=== PATIENT | male | born 1965 | race Caucasian/White ===

== ENCOUNTER → 2017-04-17 | Outpatient (REF) | payer OTHER | LOC: M LAB REF 12:08 | PROVIDERS: ATTEND Physician Assistant | DX: R30.0 Dysuria (principal) ==

== ENCOUNTER → 2017-04-17 | Outpatient (CLI) | payer OTHER ==
[2017-04-17 12:52] LABS: BASO % 0.6 % (0.0-1.0); EOS # 0.1 K/mm3 (0.0-0.50); LARGE UNSTAINED CELL # 0.1 K/mm3 (0.0-0.4); LARGE UNSTAINED CELL % 1.2 % (0.0-4.0); LYMPH # 1.8 K/mm3 (1.5-4.5); LYMPH % 24.4 % (24.0-44.0); MEAN CORPUSCULAR HEMOGLOBIN 32.9 pg (27.0-33.0); MEAN CORPUSCULAR HGB CONC 33.9 g/dl (32.0-36.5); MEAN CORPUSCULAR VOLUME 97.2 fl (80.0-96.0); MONO # 0.4 K/mm3 (0.0-0.8); MONO % 6.2 % (0.0-5.0); NEUTROPHILS # 4.7 K/mm3 (1.8-7.7); NEUTROPHILS % 66.5 % (36.0-66.0); PLATELET COUNT, AUTOMATED 289 k/mm3 (150-450); RED CELL DISTRIBUTION WIDTH 13.1 % (11.5-14.5); WHITE BLOOD COUNT 7.1 K/mm3 (4.0-10.0)
[2017-04-17 13:02] LABS: ALBUMIN 3.8 GM/DL (3.2-5.2); ALBUMIN/GLOBULIN RATIO 1.27 (1.00-1.93); ALKALINE PHOSPHATASE 91 U/L (45-117); ALT/SGPT 67 U/L (12-78); ANION GAP 9 MEQ/L (8-16); AST/SGOT 29 U/L (15-37); BILIRUBIN,TOTAL 0.5 MG/DL (0.2-1.0); BLOOD UREA NITROGEN 27 MG/DL (7-18); CALCIUM LEVEL 9.1 MG/DL (8.5-10.1); CARBON DIOXIDE LEVEL 29 MEQ/L (21-32); CHLORIDE LEVEL 108 MEQ/L (98-107); CHOLESTEROL LEVEL 182 MG/DL (<200); CREATININE FOR GFR 1.03 MG/DL (0.70-1.30); GLOMERULAR FILTRATION RATE > 60.0 (>60); GLUCOSE, FASTING 112 MG/DL (70-105); POTASSIUM SERUM 4.1 MEQ/L (3.5-5.1); SODIUM LEVEL 146 MEQ/L (136-145); TOTAL PROTEIN 6.8 GM/DL (6.4-8.2); TRIGLYCERIDES LEVEL 104 MG/DL (<150)
[2017-04-19 00:06] LABS: PSA TOTAL 0.6 ng/mL (0.0-4.0)
== END ==
LOC: M WUC 09:36
PROVIDERS: ATTEND Nurse Practitioner Family
DX: Z12.5 Encounter for screening for malignant neoplasm of prostate (principal); E78.1 Pure hyperglyceridemia; I10 Essential (primary) hypertension

== ENCOUNTER → 2018-05-18 | Outpatient (CLI) | payer OTHER ==
[2018-05-18 12:46] LABS: BASO # 0.1 10^3/uL (0.0-0.2); BASO % 0.6 % (0.0-1.0); EOS # 0.1 10^3/uL (0.0-0.50); EOS % 1.1 % (0.0-3.0); HEMATOCRIT 44.1 % (42.0-52.0); IMMATURE GRANULOCYTE % 0.3 % (0-3.0); LYMPH # 2.3 10^3/uL (1.5-4.5); LYMPH % 26.2 % (24.0-44.0); MEAN CORPUSCULAR HEMOGLOBIN 32.7 pg (27.0-33.0); MEAN CORPUSCULAR VOLUME 96.1 fl (80.0-96.0); MONO # 0.8 10^3/uL (0.0-0.8); MONO % 8.8 % (0.0-5.0); NEUTROPHILS # 5.5 10^3/uL (1.8-7.7); PLATELET COUNT, AUTOMATED 323 10^3/uL (150-450); RED BLOOD COUNT 4.59 10^6/uL (4.30-6.10); RED CELL DISTRIBUTION WIDTH 12.3 % (11.5-14.5); WHITE BLOOD COUNT 8.7 10^3/uL (4.0-10.0)
[2018-05-18 13:05] LABS: ALBUMIN 3.4 GM/DL (3.2-5.2); ALBUMIN/GLOBULIN RATIO 0.97 (1.00-1.93); ALKALINE PHOSPHATASE 105 U/L (45-117); ALT/SGPT 62 U/L (12-78); ANION GAP 8 MEQ/L (8-16); AST/SGOT 23 U/L (7-37); BILIRUBIN,TOTAL 0.4 MG/DL (0.2-1.0); BLOOD UREA NITROGEN 23 MG/DL (7-18); CALCIUM LEVEL 8.4 MG/DL (8.5-10.1); CARBON DIOXIDE LEVEL 30 MEQ/L (21-32); CHLORIDE LEVEL 106 MEQ/L (98-107); CHOLESTEROL LEVEL 174 MG/DL (<200); CHOLESTEROL RISK RATIO 5.612 (<5); CREATININE FOR GFR 1.07 MG/DL (0.70-1.30); GLOMERULAR FILTRATION RATE > 60.0 (>56); GLUCOSE, FASTING 109 MG/DL (70-100); HDL CHOLESTEROL 31 MG/DL (>40); LDL CHOLESTEROL 109 MG/DL (<100); NON-HDL-C 143 MG/DL; POTASSIUM SERUM 3.7 MEQ/L (3.5-5.1); SODIUM LEVEL 144 MEQ/L (136-145); TOTAL PROTEIN 6.9 GM/DL (6.4-8.2); TRIGLYCERIDES LEVEL 172 MG/DL (<150)
[2018-05-18 13:28] LABS: ESTIMATED AVERAGE GLUCOSE 117 MG/DL (60-110); HEMOGLOBIN A1c 5.7 %
[2018-05-20 00:08] LABS: PSA TOTAL 0.9 ng/mL (0.0-4.0)
== END ==
LOC: M WUC 08:27
DX: K21.9 Gastro-esophageal reflux disease without esophagitis (principal); R73.01 Impaired fasting glucose; E78.1 Pure hyperglyceridemia; I10 Essential (primary) hypertension; Z12.5 Encounter for screening for malignant neoplasm of prostate
CPT/HCPCS: 80053

== ENCOUNTER → 2018-06-20 | Outpatient (CLI) | payer OTHER | LOC: M WUC 12:08 | DX: M77.32 Calcaneal spur, left foot (principal); M25.572 Pain in left ankle and joints of left foot | CPT/HCPCS: 73630 ==

== ENCOUNTER → 2018-11-23 | Outpatient (CLI) | payer BC ==
[2018-11-23 13:43] LABS: BASO # 0.1 10^3/uL (0.0-0.2); BASO % 0.7 % (0.0-1.0); EOS # 0.1 10^3/uL (0.0-0.50); EOS % 0.9 % (0.0-3.0); HEMATOCRIT 46.3 % (42.0-52.0); HEMOGLOBIN 15.7 g/dl (13.5-17.5); LYMPH # 2.5 10^3/uL (1.5-4.5); LYMPH % 29.1 % (24.0-44.0); MEAN CORPUSCULAR HEMOGLOBIN 32.7 pg (27.0-33.0); MEAN CORPUSCULAR HGB CONC 33.9 g/dl (32.0-36.5); MEAN CORPUSCULAR VOLUME 96.5 fl (80.0-96.0); MONO # 0.9 10^3/uL (0.0-0.8); MONO % 10.2 % (0.0-5.0); NEUTROPHILS % 58.6 % (36.0-66.0); PLATELET COUNT, AUTOMATED 333 10^3/uL (150-450); WHITE BLOOD COUNT 8.6 10^3/uL (4.0-10.0)
[2018-11-23 13:46] LABS: ALBUMIN 3.8 GM/DL (3.2-5.2); ALT/SGPT 51 U/L (12-78); BILIRUBIN,TOTAL 0.4 MG/DL (0.2-1.0); BLOOD UREA NITROGEN 25 MG/DL (7-18); CALCIUM LEVEL 9.4 MG/DL (8.5-10.1); CARBON DIOXIDE LEVEL 31 MEQ/L (21-32); CHLORIDE LEVEL 103 MEQ/L (98-107); CHOLESTEROL LEVEL 197 MG/DL (<200); CHOLESTEROL RISK RATIO 5.969 (<5); CREATININE FOR GFR 1.17 MG/DL (0.70-1.30); GLOMERULAR FILTRATION RATE > 60.0 (>56); GLUCOSE, FASTING 114 MG/DL (70-100); HDL CHOLESTEROL 33 MG/DL (>40); LDL CHOLESTEROL 113 MG/DL (<100); NON-HDL-C 164 MG/DL; POTASSIUM SERUM 3.9 MEQ/L (3.5-5.1); SODIUM LEVEL 140 MEQ/L (136-145); TOTAL PROTEIN 6.9 GM/DL (6.4-8.2); TRIGLYCERIDES LEVEL 253 MG/DL (<150)
== END ==
LOC: M WUC 08:30
PROVIDERS: ATTEND Nurse Practitioner Family
DX: I10 Essential (primary) hypertension (principal); E78.1 Pure hyperglyceridemia

== ENCOUNTER → 2019-04-09 | Outpatient (CLI) | payer BC ==
[2019-04-09 13:43] LABS: BASO # 0.1 10^3/uL (0.0-0.2); BASO % 1.3 % (0.0-1.0); EOS # 0.1 10^3/uL (0.0-0.5); EOS % 1.6 % (0.0-3.0); HEMATOCRIT 48.2 % (42.0-52.0); HEMOGLOBIN 16.4 g/dl (13.5-17.5); LYMPH # 2.3 10^3/uL (1.5-5.0); LYMPH % 31.5 % (24.0-44.0); MEAN CORPUSCULAR HEMOGLOBIN 33.9 pg (27.0-33.0); MEAN CORPUSCULAR VOLUME 99.6 fl (80.0-96.0); MONO # 0.9 10^3/uL (0.0-0.8); MONO % 12.3 % (0.0-5.0); NEUTROPHILS # 3.8 10^3/uL (1.5-8.5); NEUTROPHILS % 51.8 % (36.0-66.0); PLATELET COUNT, AUTOMATED 342 10^3/uL (150-450); RED BLOOD COUNT 4.84 10^6/uL (4.30-6.10); WHITE BLOOD COUNT 7.4 10^3/uL (4.0-10.0)
[2019-04-09 14:46] LABS: ALBUMIN 3.5 GM/DL (3.2-5.2); ALT/SGPT 58 U/L (12-78); AMYLASE 27 U/L (25-115); BILIRUBIN,TOTAL 0.5 MG/DL (0.2-1.0); BLOOD UREA NITROGEN 26 MG/DL (7-18); CALCIUM LEVEL 9.6 MG/DL (8.5-10.1); CARBON DIOXIDE LEVEL 32 MEQ/L (21-32); CHLORIDE LEVEL 105 MEQ/L (98-107); CHOLESTEROL LEVEL 203 MG/DL (<200); CHOLESTEROL RISK RATIO 5.342 (<5); CREATININE FOR GFR 1.16 MG/DL (0.70-1.30); GLOMERULAR FILTRATION RATE > 60.0 (>56); GLUCOSE, FASTING 121 MG/DL (70-100); HDL CHOLESTEROL 38 MG/DL (>40); LDL CHOLESTEROL 132 MG/DL (<100); LIPASE 111 U/L (73-393); NON-HDL-C 165 MG/DL; POTASSIUM SERUM 3.7 MEQ/L (3.5-5.1); SODIUM LEVEL 141 MEQ/L (136-145); TOTAL PROTEIN 6.9 GM/DL (6.4-8.2); TRIGLYCERIDES LEVEL 163 MG/DL (<150)
== END ==
LOC: M WUC 08:30
PROVIDERS: ATTEND Physician Assistant
DX: R19.7 Diarrhea, unspecified (principal); E78.2 Mixed hyperlipidemia

== ENCOUNTER → 2019-08-28 | Outpatient (CLI) | payer BC ==
[2019-08-28 17:25] LABS: BASO % 0.2 % (0.0-1.0); EOS # 0.1 10^3/uL (0.0-0.5); EOS % 0.6 % (0.0-3.0); HEMATOCRIT 46.1 % (42.0-52.0); LYMPH # 0.9 10^3/uL (1.5-5.0); MEAN CORPUSCULAR HEMOGLOBIN 32.9 pg (27.0-33.0); MEAN CORPUSCULAR HGB CONC 34.7 g/dl (32.0-36.5); MEAN CORPUSCULAR VOLUME 94.7 fl (80.0-96.0); MONO # 0.5 10^3/uL (0.0-0.8); MONO % 6.4 % (0.0-5.0); NEUTROPHILS # 6.9 10^3/uL (1.5-8.5); PLATELET COUNT, AUTOMATED 329 10^3/uL (150-450); RED BLOOD COUNT 4.87 10^6/uL (4.30-6.10); WHITE BLOOD COUNT 8.5 10^3/uL (4.0-10.0)
[2019-08-28 17:33] LABS: ALBUMIN 3.6 GM/DL (3.2-5.2); ALT/SGPT 74 U/L (12-78); AMYLASE 28 U/L (25-115); BILIRUBIN,TOTAL 0.5 MG/DL (0.2-1.0); BLOOD UREA NITROGEN 16 MG/DL (7-18); CALCIUM LEVEL 8.4 MG/DL (8.5-10.1); CARBON DIOXIDE LEVEL 30 MEQ/L (21-32); CHLORIDE LEVEL 105 MEQ/L (98-107); CREATININE FOR GFR 1.13 MG/DL (0.70-1.30); GLOMERULAR FILTRATION RATE > 60.0 (>56); GLUCOSE, FASTING 120 MG/DL (70-100); POTASSIUM SERUM 3.9 MEQ/L (3.5-5.1); SODIUM LEVEL 139 MEQ/L (136-145); TOTAL PROTEIN 6.9 GM/DL (6.4-8.2)
== END ==
LOC: M WUC 15:26
PROVIDERS: ATTEND Physician Assistant
DX: J01.10 Acute frontal sinusitis, unspecified (principal)

== ENCOUNTER → 2020-05-19 | Outpatient (CLI) | payer BC ==
[2020-05-19 13:42] LABS: HEMOGLOBIN A1c 5.7 %
[2020-05-19 13:49] LABS: ALBUMIN 3.5 GM/DL (3.2-5.2); ALT/SGPT 82 U/L (12-78); BILIRUBIN,TOTAL 0.4 MG/DL (0.2-1.0); BLOOD UREA NITROGEN 21 MG/DL (7-18); CALCIUM LEVEL 8.9 MG/DL (8.5-10.1); CARBON DIOXIDE LEVEL 28 MEQ/L (21-32); CHLORIDE LEVEL 108 MEQ/L (98-107); CHOLESTEROL LEVEL 195 MG/DL (<200); CREATININE FOR GFR 1.09 MG/DL (0.70-1.30); GLOMERULAR FILTRATION RATE > 60.0 (>56); GLUCOSE, FASTING 98 MG/DL (70-100); HDL CHOLESTEROL 37 MG/DL (>40); LDL CHOLESTEROL 134 MG/DL (<100); NON-HDL-C 158 MG/DL; POTASSIUM SERUM 4.3 MEQ/L (3.5-5.1); SODIUM LEVEL 141 MEQ/L (136-145); TOTAL PROTEIN 6.9 GM/DL (6.4-8.2); TRIGLYCERIDES LEVEL 120 MG/DL (<150)
== END ==
LOC: M WUC 09:49
PROVIDERS: ATTEND Physician Assistant Medical
DX: R73.01 Impaired fasting glucose (principal)

== ENCOUNTER → 2021-01-08 | Outpatient (CLI) | payer BC ==
--- NOTE | 2021-01-08 14:26 | REP ---
INDICATION: PAIN COMPARISON: None. TECHNIQUE: AP, lateral, single oblique views of the left elbow elbow. FINDINGS: No obvious acute or subacute fracture is identified. Mild cortical irregularity over the lateral condylar region of the humerus suggest mild age-related degenerative change. Lateral view without evidence for joint effusion or elevation to the anterior fat pad. IMPRESSION: Age-related changes. No evidence for acute/subacute injury. <Electronically signed by Nabil Park > 01/08/21 [id number]
== END ==
LOC: M WUC 13:06
PROVIDERS: ATTEND Nurse Practitioner Family
DX: M25.522 Pain in left elbow (principal)

== ENCOUNTER 2021-05-21 06:08 | Emergency (ER) | payer BC ==
[~2021-05-21] VITALS: Ht 170.2 cm; Wt 112.0 kg
[2021-05-21] MEDS ORDERED: HYDR-3490 (06:19)
[2021-05-21] MEDS ORDERED: LOPI600T (06:19)
[2021-05-21] MEDS ORDERED: OMEP-221 (06:19)
[2021-05-21] MEDS ORDERED: LOSA50TA88 (06:19)
[2021-05-21 08:03] LABS: HEMATOCRIT 44.1 % (42.0-52.0); MEAN CORPUSCULAR HEMOGLOBIN 32.8 pg (27.0-33.0); MEAN CORPUSCULAR VOLUME 96.3 fl (80.0-96.0); PLATELET COUNT, AUTOMATED 291 10^3/uL (150-450); RED BLOOD COUNT 4.58 10^6/uL (4.30-6.10); WHITE BLOOD COUNT 7.1 10^3/uL (4.0-10.0)
[2021-05-21] MEDS ORDERED: LOSARTAN 50MG TABLET PO ONE (08:05)
--- NOTE | 2021-05-21 08:36 | REPVR ---
PROCEDURE INFORMATION: Exam: CT Head Without Contrast Exam date and time: 05/21/2021 8:21 AM Age: 55 years old Clinical indication: Headache. TECHNIQUE: Imaging protocol: Computed tomography of the head without contrast. Radiation optimization: All CT scans at this facility use at least one of these dose optimization techniques: automated exposure control; mA and/or kV adjustment per patient size (includes targeted exams where dose is matched to clinical indication); or iterative reconstruction. COMPARISON: No relevant prior studies available. FINDINGS: Brain: Normal. No hemorrhage. Unremarkable white matter. No mass effect. Cerebral ventricles: No ventriculomegaly. Paranasal sinuses: Visualized sinuses are unremarkable. No fluid levels. Mastoid air cells: Visualized mastoid air cells are well aerated. Bones/joints: Unremarkable. No acute fracture. Soft tissues: Unremarkable. IMPRESSION: No acute intracranial abnormality. Electronically signed by: Gunnar Prado On 05/21/2021 08:35:23 AM
[2021-05-21 08:37] LABS: BASOPHILS 1 % (0-1); EOSINOPHILS 2 % (0-3); LYMPHOCYTES 31 % (16-44); MONOCYTES 8 % (0-5); NEUTROPHILS 58 % (28-66); PLATELET ESTIMATE NORMAL (NORMAL)
[2021-05-21 08:41] VITALS: BP 165/93
--- OUTSIDE RECORDS SUMMARY | 2021-05-21 08:50 | CCD ---
Author Author [facility] Organization [facility] Address Unknown Phone Unavailable Care Team Providers Care Punch Press Feeder Name Role Phone Tomeka Tellezina LIGHT INDUSTRIAL Unavailable Unavailable Tellez Fidelia LIGHT INDUSTRIAL Unavailable Unavailable Tellez, Fidelia LIGHT INDUSTRIAL Unavailable Unavailable Tellez, Fidelia LIGHT INDUSTRIAL Unavailable Unavailable Tellez, Fidelia LIGHT INDUSTRIAL Unavailable Unavailable Tellez, Fidelia LIGHT INDUSTRIAL Unavailable Unavailable Tellez, Fidelia LIGHT INDUSTRIAL Unavailable Unavailable Tellez, Fidelia LIGHT INDUSTRIAL Unavailable Unavailable Tellez, Fidelia LIGHT INDUSTRIAL Unavailable Unavailable Tellez, Fidelia LIGHT INDUSTRIAL Unavailable Unavailable Tellez, Fidelia LIGHT INDUSTRIAL Unavailable Unavailable Tellez, Fidelia LIGHT INDUSTRIAL Unavailable Unavailable Tellez, Fidelia LIGHT INDUSTRIAL Unavailable Unavailable Petrancosta, Williams Trinidad PA-C Unavailable Unavailabl e Petrancosta, Williams Trinidad PA-C Unavailable Unavailabl e Petrancosta, Williams Trinidad PA-C Unavailable Unavailabl e Petrancosta, Williams Trinidad PA-C Unavailable Unavailabl e Petrancosta, Williams Trinidad PA-C Unavailable Unavailabl e Petrancosta, Williams Trinidad PA-C Unavailable Unavailabl e Petrancosta, Williams Trinidad PA-C Unavailable Unavailabl e Petrancosta, Williams Trinidad PA-C Unavailable Unavailabl e Petrancosta, Williams Trinidad PA-C Unavailable Unavailabl e Petrancosta, Williams Trinidad PA-C Unavailable Unavailabl e Petrancosta, Williams Trinidad PA-C Unavailable Unavailabl e Petrancosta, Williams Trinidad PA-C Unavailable Unavailabl e Petrancosta, Williams Trinidad PA-C Unavailable Unavailabl e Petrancosta, Williams Trinidad PA-C Unavailable Unavailabl e Petrancosta, Williams Trinidad PA-C Unavailable Unavailabl e Petrancosta, Williams Trinidad PA-C Unavailable Unavailabl e Petrancosta, Williams Trinidad PA-C Unavailable Unavailabl e Petrancosta, Williams Trinidad PA-C Unavailable Unavailabl e Petrancosta, Williams Trinidad PA-C Unavailable Unavailabl e Petrancosta, Williams Trinidad PA-C Unavailable Unavailabl e Petrancosta, Williams Trinidad PA-C Unavailable Unavailabl e Petrancosta, Williams Trinidad PA-C Unavailable Unavailabl e Petrancosta, Williams Trinidad PA-C Unavailable Unavailabl e Petrancosta, Williams Trinidad PA-C Unavailable Unavailabl e Petrancosta, Williams Trinidad PA-C Unavailable Unavailabl e RING, K ULYSSES PA Unavailable Unavailable RING, K ULYSSES PA Unavailable Unavailable RING, K ULYSSES PA Unavailable Unavailable RING, K ULYSSES PA Unavailable Unavailable RING, K ULYSSES PA Unavailable Unavailable RING, K ULYSSES PA Unavailable Unavailable RING, K ULYSSES PA Unavailable Unavailable RING, K ULYSSES PA Unavailable Unavailable RING, K ULYSSES PA Unavailable Unavailable RING, K ULYSSES PA Unavailable Unavailable RING, K ULYSSES PA Unavailable Unavailable RING, K ULYSSES PA Unavailable Unavailable RING, K ULYSSES PA Unavailable Unavailable RING, K ULYSSES PA Unavailable Unavailable RING, K ULYSSES PA Unavailable Unavailable RING, K ULYSSES PA Unavailable Unavailable RING, K ULYSSES PA Unavailable Unavailable RING, K ULYSSES PA Unavailable Unavailable RING, K ULYSSES PA Unavailable Unavailable RING, K ULYSSES PA Unavailable Unavailable RING, K ULYSSES PA Unavailable Unavailable Re-disclosure Warning The records that you are about to access may contain information from federally-assisted alcohol or drug abuse programs. If such information is present, then the following federally mandated warning applies: This information has been disclosed to you from records protected by federal confidentiality rules (42 CFR part 2). The federal rules prohibit you from making any further disclosure of this information unless further disclosure is expressly permitted by the written consent of the person to whom it pertains or as otherwise permitted by 42 CFR part 2. A general authorization for the release of medical or other information is NOT sufficient for this purpose. The Federal rules restrict any use of the information to criminally investigate or prosecute any alcohol or drug abuse patient.The records that you are about to access may contain highly sensitive health information, the redisclosure of which is protected by Article 27-F of the [facility] Public Health law. If you continue you may have access to information: Regarding HIV / AIDS; Provided by facilities licensed or operated by the [facility] Office of Mental Health; or Provided by the [facility] Office for People With Developmental Disabilities. If such information is present, then the following [facility] mandated warning applies: This information has been disclosed to you from confidential records which are protected by state law. State law prohibits you from making any further disclosure of this information without the specific written consent of the person to whom it pertains, or as otherwise permitted by law. Any unauthorized further disclosure in violation of state law may result in a fine or [place] health care facility sentence or both. A general authorization for the release of medical or other information is NOT sufficient authorization for further disc losure. Family History Family Member Name Family Member Gender Family Member Status Date o f Status Description Data Source(s) Unknown Unknown Problem [facility] ([facility], [facility]) mother Encounters Encounter Providers Location Date Indications Data Source(s ) Outpatient Attender: ULYSSES [place] [facility] 02/25/2021 08:30:00 AM EDT [facility] Outpatient Attender: Fidelia [place] [facility] 01/08/2021 01:00:00 PM EDT [facility] ([facility]) Outpatient Attender: Trinidad Paulino PA-C Main Office 06/21/2020 02:30:00 PM EST [facility] ([facility] Outpatient Attender: Trinidad Paulino PA-C Main Office 05/24/2020 03:30:00 PM EDT [facility] ([facility] Outpatient Attender: Trinidad Paulino PA-C Main Office 04/26/2020 03:30:00 PM EDT [facility] ([facility] Immunizations Vaccine Date Status Description Data Source(s) COVID-19 VACC, MRNA(PFIZER)/PF 04/28/2021 12:00:00 AM EDT completed [facility] COVID-19 VACCINE Pfizer 04/28/2021 12:00:00 AM EDT completed [facility] Vaccine Series Complete: YESThis Data wa s Submitted to [facility] Via [employer]. COVID-19 VACC, MRNA(PFIZER)/PF 04/08/2021 12:00:00 AM EDT completed [facility] COVID-19 VACCINE Pfizer 04/08/2021 12:00:00 AM EDT completed [facility] Vaccine Series Complete: NOThis Data was Submitted to [facility] [employer]. New in 2012. IIV4 04/26/2020 03:45:00 PM EDT completed [facility] ([facility] Medications Medication Brand Name Start Date Product Form Dose Route Admi nistrative Instructions Pharmacy Instructions Status Indications Reaction Description Data Source(s) Amoxicillin 875 MG / Clavulanate 125 MG Oral Tablet Am oxicillin/Clavulanate Potassium 02/25/2021 12:00:00 AM EDT ORAL active [facility] ([facility] Hydrochlorothiazide 25 MG Oral Tablet Hydrochlorothiazide 12:00:00 AM EST active [facility] ([facility] Losartan Potassium 50 MG Oral Tablet Losartan Potassium 12:00:00 AM EDT ORAL active [facility] ([facility] Losartan Potassium 25 MG Oral Tablet Losartan Potassium 12:00:00 AM EDT ORAL completed [facility] ([facility] Insurance Providers Payer name Policy type / Coverage type Policy ID Covered alliance party ID Covered alliance party's relationship to chin Policy Chin Plan Information [id number] [employer] [place] PPO 302/307 [id number] SP [id number] [facility] [id number] S [id number] [facility] Commercial [id number] Self [id number] [facility] Commercial [id number] Self [id number] [facility] [id number] SP [id number] [facility] [id number] SP [id number] [facility] [id number] SP [id number] [facility] Commercial [id number] Self BCBS OF [place] [id number] SP [id number] [facility] [id number] SP [id number] Problems, Conditions, and Diagnoses No Information Surgeries/Procedures Procedure Description Date Indications Data Source(s) OFFICE OUTPATIENT VISIT 15 MINUTES 02/25/2021 12:00:00 AM EDT [facility] ([facility]) OFFICE OUTPATIENT VISIT 15 MINUTES 01/08/2021 12:00:00 AM EDT [facility] ([facility]) Results ID Date Data Source [id number] 05/19/2020 09:50:00 AM EDT [facility] ([facility] Name Value Range Interpretation Code Description Data Priti rce(s) Supporting Document(s) Glucose, Fasting 98 mg/dL 70-100 [facility] ([facility] Blood Urea Nitrogen 21 mg/dL 7-18 [facility] ([facility] Creatinine For GFR 1.09 mg/dL 0.70-1.30 [facility] ([facility] Glomerular Filtration Rate Laboratory test result [facility] ([facility] <content>Units are mL/min/1.73 m2</content>
<content></content>
<content>Chronic Kidney Disease Staging per NKF:</content>
<content></content>
<content>Stage I & II GFR >=60 Normal to Mildly Decreased</content>
<content>Stage III GFR 30-59 Moderately Decreased</content>
<content>Stage IV GFR 15-29 Severely Decreased</content>
<content>Stage V GFR <15 Very Little GFR Left</content>
<content>ESRD GFR <15 on COFFEE BLENDER</content>
<content></content> Potassium Serum 4.3 meq/L 3.5-5.1 [facility] ([facility] Sodium Level 141 meq/L 136-145 [facility] ([facility] Chloride Level 108 meq/L 98-107 [facility] ([facility] Anion Gap 5 meq/L 8-16 [facility] Ast/Sgot 37 U/L 7-37 [facility] Calcium Level 8.9 mg/dL 8.5-10.1 [facility] ([facility] Carbon Dioxide Level 28 meq/L 21-32 [facility] ([facility] Bilirubin,Total 0.4 mg/dL 0.2-1.0 [facility] ([facility] Alt/SGPT 82 U/L 12-78 [facility] Alkaline Phosphatase 136 U/L 45-117 [facility] Albumin/Globulin Ratio 1.0 [facility] ([facility] Albumin 3.5 GM/DL 3.2-5.2 [facility] ([facility] Total Protein 6.9 GM/DL 6.4-8.2 [facility] ([facility] ID Date Data Source [id number] 05/19/2020 09:50:00 AM EDT [facility] ([facility] Name Value Range Interpretation Code Description Data Priti rce(s) Supporting Document(s) Triglycerides Level 120 mg/dL [facility] ([facility] HDL Cholesterol 37 mg/dL [facility] ([facility] LDL Cholesterol 134 mg/dL [facility] ([facility] Cholesterol Level 195 mg/dL [facility] ([facility] Cholesterol Risk Ratio 5.270 [facility] ([facility] Non-HDL-C 158 mg/dL [facility] ID Date Data Source [id number] 05/19/2020 09:50:00 AM EDT [facility] ([facility] Name Value Range Interpretation Code Description Data Priti e(s) Supporting Document(s) Estimated Average Glucose 117 mg/dL 60-110 [facility] ([facility] Hemoglobin A1c 5.7 % [facility] ([facility] <content>REFERENCE RANGES:</content><br/ ><content></content>
<content><=5.6% NORMAL</content>
<content>5.7-6.4% SUGGESTS IMPAIRED GLUCOSE METABOLISM/PREDIABETIC</content>
<content>>= 6.5% ABNORMAL</content>
<content></content> Procedure Social History Code Duration Value Status Description Data Source(s ) Smoking 02/25/2021 12:00:00 AM EDT Patient has never smoked co mpleted Patient has never smoked [facility] ([facility]) Smoking 06/21/2020 12:00:00 AM EST Patient has never smoked co mpleted Patient has never smoked [facility] ([facility] Vital Signs ID Date Data Source UNK Name Value Range Interpretation Code Description Data Source(s) Heart rate 83 /min 83 /min [facility] ([facility]) Respiratory rate 15 /min 15 /min [facility] ( [facility]) Oxygen saturation in Arterial blood by Pulse oximetry 98 % 98 % [facility] ([facility]) Body temperature 98.3 [degF] 98.3 [degF] [facility] ([facility]) Body weight 250.00 [lb_av] 250.00 [lb_av] [facility] T ([facility]) Body height 69 [in_i] 69 [in_i] [facility] 5'9" Body mass index (BMI) [Ratio] 36.9 kg/m2 36.9 k g/m2 [facility]) Systolic blood pressure 156 mm[Hg] 156 mm[Hg] [facility]) Diastolic blood pressure 100 mm[Hg] 100 mm[Hg] [facility] ([facility]) Systolic blood pressure 150 mm[Hg] 150 mm[Hg] [facility]) Diastolic blood pressure 104 mm[Hg] 104 mm[Hg] [facility]) Heart rate 88 /min 88 /min [facility] ([facility]) Respiratory rate 16 /min 16 /min [facility] ( [facility]) Oxygen saturation in Arterial blood by Pulse oximetry 97 % 97 % [facility] ([facility]) Body temperature 98.9 [degF] 98.9 [degF] [facility] ([facility]) Body weight 258.00 [lb_av] 258.00 [lb_av] [facility] T ([facility]) Body height 67 [in_i] 67 [in_i] [facility] ([facility]) 5'7" Body mass index (BMI) [Ratio] 40.4 kg/m2 40.4 k g/m2 [facility] ([facility]) Systolic blood pressure 168 mm[Hg] 168 mm[Hg] M [facility] ([facility] Diastolic blood pressure 92 mm[Hg] 92 mm[Hg] [facility] Systolic blood pressure 151 mm[Hg] 151 mm[Hg] [facility] ([facility] Diastolic blood pressure 80 mm[Hg] 80 mm[Hg] [facility] Heart rate 75 /min 75 /min [facility] ([facility] Body temperature 97.1 [degF] 97.1 [degF] [facility] ([facility] Respiratory rate 16 /min 16 /min [facility] ( [facility] Body height 69.0 [in_i] 69.0 [in_i] [facility] ([facility] 5'9" Body weight 246.38 [lb_av] 246.38 [lb_av] [facility] T ([facility] Oxygen saturation in Arterial blood by Pulse oximetry 98 % 98 % [facility] ([facility] [place] body weight 160 [lb_av] 160 [lb_av] [facility] ([facility] Body mass index (BMI) [Ratio] 36.4 kg/m2 36.4 k g/m2 [facility] ([facility] Systolic blood pressure 168 mm[Hg] 168 mm[Hg] [facility] Diastolic blood pressure 100 mm[Hg] 100 mm[Hg] [facility] ([facility] Systolic blood pressure 154 mm[Hg] 154 mm[Hg] M [facility] ([facility] Diastolic blood pressure 90 mm[Hg] 90 mm[Hg] [facility] Heart rate 79 /min 79 /min [facility] ([facility] Body temperature 97.4 [degF] 97.4 [degF] [facility] ([facility] Respiratory rate 17 /min 17 /min [facility] ( [facility] Body height 69.0 [in_i] 69.0 [in_i] [facility] ([facility] 5'9" Body weight 245.38 [lb_av] 245.38 [lb_av] [facility] T ([facility] Oxygen saturation in Arterial blood by Pulse oximetry 98 % 98 % [facility] ([facility] [place] body weight 160 [lb_av] 160 [lb_av] [facility] T ([facility] Body mass index (BMI) [Ratio] 36.2 kg/m2 36.2 k g/m2 [facility] ([facility] Systolic blood pressure 165 mm[Hg] 165 mm[Hg] M [facility] ([facility] Diastolic blood pressure 98 mm[Hg] 98 mm[Hg] [facility] Systolic blood pressure 147 mm[Hg] 147 mm[Hg] M [facility] ([facility] Diastolic blood pressure 90 mm[Hg] 90 mm[Hg] [facility] Heart rate 83 /min 83 /min [facility] ([facility] Body temperature 96.4 [degF] 96.4 [degF] [facility] ([facility] Body weight 245.12 [lb_av] 245.12 [lb_av] [facility] T ([facility] Oxygen saturation in Arterial blood by Pulse oximetry 96 % 96 % [facility] [place] body weight 160 [lb_av] 160 [lb_av] [facility] T ([facility] Body mass index (BMI) [Ratio] 36.2 kg/m2 36.2 k g/m2 [facility] Respiratory rate 17 /min 17 /min [facility] ( [facility] Body height 69.0 [in_i] 69.0 [in_i] [facility] ([facility] 5'9"
--- OUTSIDE RECORDS SUMMARY | 2021-05-21 08:50 | CCD | Continuity of Care Document ---
Author Author Raj MORENO Organization Unknown Address [address] [place] [address] [place] [address] Phone [phone] Care Team Providers Care Health Actuary Name Role Phone Sharmin Todd MD AUTM [phone] [facility] AUTM [phone] Problems Description No Information Available Social History Type Date Description Comments Sex Unknown ETOH Use Occasionally consumes alcohol Tobacco Use Start: Unknown Patient has never smoked Smoking Status Reviewed: 02/25/21 Patient has never smoked Allergies, Adverse Reactions, Alerts Description No Known Drug Allergies Medications Active Medications SIG Qnty Indications Ordering Provide r Date Omeprazole 40mg Capsules DR 1 po daily. take 1 hour before eating 30caps Unknown Vitamin D 1000Unit Capsules e very day Unknown Dyazide 37.5-25mg Capsules po qd Unknown Milk Thistle Xtra Capsules Unknown Aleve none Unknown Medications Administered in Office Medication SIG Qnty Indications Ordering Provider Date Rocephin/Ceftriaxone Sodium Injection Pe r 250 MG Injection MELIA Vaughan 0 04/17/2017 Rocephin/Ceftriaxone Sodium Injection Pe r 250 MG Injection LETY Gannon 11/23/2014 Immunizations Description No Information Available Vital Signs Date Vital Result Comment 02/25/2021 8:31am BP Systolic 156 mmHg BP Diastolic 100 mmHg Heart Rate 83 /min Respiratory Rate 15 /min O2 % BldC Oximetry 98 % Body Temperature 98.3 F Weight 250.00 lb Height 69 inches 5'9" BMI (Body Mass Index) 36.9 kg/m2 Pain Level 8 01/08/2021 12:17pm BP Systolic 150 mmHg BP Diastolic 104 mmHg Heart Rate 88 /min Respiratory Rate 16 /min O2 % BldC Oximetry 97 % Body Temperature 98.9 F Weight 258.00 lb Height 67 inches 5'7" BMI (Body Mass Index) 40.4 kg/m2 Pain Level 10 Results Description No Information Available Procedures Date Code Description Status 01/08/2021 23478 Office/Outpatient Established Lo w MDM 20-29 Min Completed Medical Devices Description No Information Available Encounters Type Date Location Provider Dx Diagnosis Office Visit 01/08/2021 1:00p Main Office Fidelia Tellez NP M25. 522 Pain in left elbow Assessments Date Code Description Provider 01/08/2021 M25.522 Pain in left elbow Fidelia lange NP Plan of Treatment No Information Available Functional Status Description No Information Available Mental Status Description No Information Available Referrals Refer to Reason for Referral Status Appt Date Phillip William MD left elbow pain/swelling Created [address] [place] [address] [phone]
--- OUTSIDE RECORDS SUMMARY | 2021-05-21 08:50 | CCD | Continuity of Care Document ---
Author Author Raj MORENO Organization Unknown Address [address] [place] [address] [place] [address] Phone [phone] Care Team Providers Care Bookie Name Role Phone Sharmin Todd MD AUTM [phone] [facility] AUTM [phone] Problems Description No Information Available Social History Type Date Description Comments Sex Unknown ETOH Use Occasionally consumes alcohol Tobacco Use Start: Unknown Patient has never smoked Smoking Status Reviewed: 02/25/21 Patient has never smoked Allergies, Adverse Reactions, Alerts Description No Known Drug Allergies Medications Active Medications SIG Qnty Indications Ordering Provide r Date Amoxicillin/Clavulanate Potassium 875-125mg Tablets take one tablet by mouth twice a day x 10 days 20tabs K 04.7 Gavin Green JR., M.D. 02/25/[address] 1 po daily. [...] Information Available Procedures Date Code Description Status 02/25/2021 59301 Office/Outpatient Established Lo w MDM 20-29 Min Completed 01/08/2021 49708 Office/Outpatient Established Lo w MDM 20-29 Min Completed Medical Devices Description No Information Available Encounters Type Date Location Provider Dx Diagnosis Office Visit 02/25/2021 8:30a Main Office MELIA Coleman K04.7 Periapical abscess without sinus I10 Essential (primary) hyperten alex Office Visit 01/08/2021 1:00p Main Office Fidelia Tellez NP M25. 522 Pain in left elbow Assessments Date Code Description Provider 02/25/2021 K04.7 Periapical abscess without sinus MELIA Coleman 02/25/2021 I10 Essential (primary) hypertension MELIA Coleman 01/08/2021 M25.522 Pain in left elbow Fidelia lange NP Plan of Treatment 02/25/2021 - MELIA Coleman* K04.7 Periapical abscess without sinus* New Medication:* Amoxicillin/Clavulanate Potassium 875-125 mg - take one tablet by mouth twice a day x 10 days * Comments:* Start augmentin as directed.Contact dentist in follow up.OTC tylenol per package instruction for pain. * I10 Essential (primary) hypertension* Comments:* Manual recheck of BP was 162/100. Patient admits to not taking his BP medication this morning.Patient was advised to continue to monitor and to see PCP in follow up for any concerns.Return or to ED for any concerns if unable to get into PCP.Patient verbalized understanding and was agreeable to plan. Functional Status Description No Information Available Mental Status Description No Information Available Referrals Refer to Reason for Referral Status Appt Date Phillip William MD left elbow pain/swelling Created [address] [place] [address] [phone]
--- NOTE | 2021-05-21 12:06 | REPVR ---
PROCEDURE INFORMATION: Exam: MR Head Without Contrast Exam date and time: 05/21/2021 11:31 AM Age: 55 years old Clinical indication: Numbness / parasthesia; Left; Additional info: Left arm paresthesia TECHNIQUE: Imaging protocol: MR of the head without contrast. COMPARISON: CT Head without contrast 05/21/2021 8:19 AM FINDINGS: Brain: Normal. No acute infarct. No hemorrhage. No significant white matter disease. No edema. Cerebral ventricles: Normal. No ventriculomegaly. Bones/joints: Unremarkable. Paranasal sinuses: Normal as visualized. No acute sinusitis. Mastoid air cells: Normal as visualized. No mastoid effusion. Orbital cavity: Unremarkable. Soft tissues: Unremarkable. IMPRESSION: No acute findings. Electronically signed by: Gunnar Prado On 05/21/2021 12:06:13 PM
[2021-05-21 12:11] LABS: ALBUMIN 3.4 GM/DL (3.2-5.2); ALT/SGPT 84 U/L (12-78); BILIRUBIN,TOTAL 0.4 MG/DL (0.2-1.0); BLOOD UREA NITROGEN 20 MG/DL (7-18); CALCIUM LEVEL 8.9 MG/DL (8.5-10.1); CARBON DIOXIDE LEVEL 30 MEQ/L (21-32); CHLORIDE LEVEL 107 MEQ/L (98-107); CK-MB VALUE MASS 3.1 NG/ML (<3.6); CPK CREATINE PHOSPHOKINASE 108 U/L (39-308); CREATININE FOR GFR 1.01 MG/DL (0.70-1.30); GLOMERULAR FILTRATION RATE > 60.0 (>56); GLUCOSE, FASTING 128 MG/DL (70-100); MB/CK RELATIVE INDEX 2.87 (< OR =4); POTASSIUM SERUM 3.9 MEQ/L (3.5-5.1); SODIUM LEVEL 141 MEQ/L (136-145); TOTAL PROTEIN 6.9 GM/DL (6.4-8.2); TROPONIN I < 0.02 NG/ML (< 0.10)
--- NOTE | 2021-05-21 12:23 | REPVR ---
PROCEDURE INFORMATION: Exam: MRA Head Without Contrast; Arteriography Exam date and time: 05/21/2021 11:31 AM Age: 55 years old Clinical indication: Left arm paresthesia TECHNIQUE: Imaging protocol: Magnetic resonance angiography head without contrast. Exam focused on the arteries. COMPARISON: CT Head without contrast 05/21/2021 8:19 AM FINDINGS: ANTERIOR CIRCULATION: Right internal carotid artery: Intracranial segment is patent with no significant stenosis. No aneurysm. Right middle cerebral artery: No occlusion or significant stenosis. No aneurysm. Right anterior cerebral artery: No occlusion or significant stenosis. No aneurysm. Left internal carotid artery: Intracranial segment is patent with no significant stenosis. No aneurysm. Left middle cerebral artery: There is a paucity of distal left MCA branches compared to the right. The cause for this is not determined on this exam and is discrepant with the clinical history which reports left sided symptoms. Left anterior cerebral artery: No occlusion or significant stenosis. No aneurysm. POSTERIOR CIRCULATION: Right vertebral artery: No occlusion or significant stenosis. No aneurysm. Left vertebral artery: The left vertebral artery terminates in a PICA. Basilar artery: No occlusion or significant stenosis. No aneurysm. Right posterior cerebral artery: No occlusion or significant stenosis. No aneurysm. Left posterior cerebral artery: See "Left middle cerebral artery" finding. IMPRESSION: There is a paucity of distal left MCA branches compared to the right. One of the distal left MCA branches may be occluded. The cause for this is not determined on this exam and is discrepant with the clinical history which reports left sided symptoms. Please reassess patient's clinical condition. If patient's symptoms persist and/or worsen, followup cervical and intracranial CTA would be recommended. Electronically signed by: Gunnar Prado On 05/21/2021 12:23:08 PM
[2021-05-21] MEDS ORDERED: ISOVUE-370 76% 100ML VIAL As Ordered ONE (13:43)
--- NOTE | 2021-05-21 15:31 | REPVR ---
PROCEDURE INFORMATION: Exam: CT Angiography Head With Contrast, Arteriography Exam date and time: 05/21/2021 2:25 PM Age: 55 years old Clinical indication: Pain; Headache; Additional info: Paresthesia/abnormla mri TECHNIQUE: Imaging protocol: Computed tomography angiography of the head with contrast. Exam focused on the arteries. 3D rendering (Not supervised by radiologist): MIP and/or 3D reconstructed images were created and reviewed. COMPARISON: MRA BRAIN W/O CONTRAST 05/21/2021 10:51 AM FINDINGS: ANTERIOR CIRCULATION: Right internal carotid artery: Unremarkable. Intracranial segment is patent with no significant stenosis. No aneurysm. Right middle cerebral artery: Unremarkable. No occlusion or significant stenosis. No aneurysm. Right anterior cerebral artery: Unremarkable. No occlusion or significant stenosis. No aneurysm. Left internal carotid artery: Unremarkable. Intracranial segment is patent with no significant stenosis. No aneurysm. Left middle cerebral artery: Unremarkable. No occlusion or significant stenosis. No aneurysm. Left anterior cerebral artery: Unremarkable. No occlusion or significant stenosis. No aneurysm. POSTERIOR CIRCULATION: Right vertebral artery: Unremarkable. No occlusion or significant stenosis. No aneurysm. Left vertebral artery: The left vertebral artery terminates in a PICA. Basilar artery: Unremarkable. No occlusion or significant stenosis. No aneurysm. Right posterior cerebral artery: Unremarkable. No occlusion or significant stenosis. No aneurysm. Left posterior cerebral artery: Unremarkable. No occlusion or significant stenosis. No aneurysm. Brain: No definite mass, mass effect, or midline shift. Cerebral ventricles: No ventriculomegaly. Bones/joints: Unremarkable. No acute fracture. Soft tissues: Unremarkable. IMPRESSION: No large vessel stenosis or occlusion. PROCEDURE INFORMATION: Exam: CT Angiography Neck With Contrast Exam date and time: 05/21/2021 2:25 PM Age: 55 years old Clinical indication: Pain; Headache; Additional info: Paresthesia/abnormla mri TECHNIQUE: Imaging protocol: Computed tomography angiography of the neck with contrast. 3D rendering (Not supervised by radiologist): MIP and/or 3D reconstructed images were created by the technologist. Radiation optimization: All CT scans at this facility use at least one of these dose optimization techniques: automated exposure control; mA and/or kV adjustment per patient size (includes targeted exams where dose is matched to clinical indication); or iterative reconstruction. Contrast material: ISOVUE 370; Contrast volume: 100 ml; Contrast route: INTRAVENOUS (IV); COMPARISON: MRA BRAIN W/O CONTRAST 05/21/2021 10:51 AM FINDINGS: Right common carotid artery: There are mild calcified atherosclerotic changes involving the right common carotid artery bifurcation. Right internal carotid artery: No stenosis of the extracranial segment. No dissection or occlusion. Right external carotid artery: No occlusion or stenosis of the origin. Left common carotid artery: No stenosis. No dissection or occlusion. Left internal carotid artery: No stenosis of the extracranial segment. No dissection or occlusion. Left external carotid artery: No occlusion or stenosis of the origin. Right vertebral artery: The patient is right vertebral artery dominant. Left vertebral artery: The left vertebral artery terminates in a PICA. Soft tissues: Normal. No significant soft tissue swelling. Bones/joints: No acute fracture. IMPRESSION: No stenosis or occlusion. REFERENCES: NASCET CRITERIA. The degree of internal carotid artery stenosis is based on NASCET criteria. Normal is no stenosis. Mild is less than 50% stenosis. Moderate is 50-69% stenosis. Severe is 70% to 99% stenosis. Total occlusion is no detectable patent lumen. Electronically signed by: Gunnar Prado On 05/21/2021 15:31:17 PM
--- NOTE | 2021-05-21 15:35 | REPVR ---
PROCEDURE INFORMATION: Exam: CT Angiography Head With Contrast, Arteriography Exam date and time: 05/21/2021 2:25 PM Age: 55 years old Clinical indication: Headache; Additional info: Paresthesia/abnormla mri TECHNIQUE: Imaging protocol: Computed tomography angiography of the head with contrast. Exam focused on the arteries. 3D rendering (Not supervised by radiologist): MIP and/or 3D reconstructed images were created by the technologist. Radiation optimization: All CT scans at this facility use at least one of these dose optimization techniques: automated exposure control; mA and/or kV adjustment per patient size (includes targeted exams where dose is matched to clinical indication); or iterative reconstruction. Contrast material: ISOVUE 370; Contrast volume: 100 ml; Contrast route: INTRAVENOUS (IV); COMPARISON: MRA BRAIN W/O CONTRAST 05/21/2021 10:51 AM FINDINGS: ANTERIOR CIRCULATION: Right internal carotid artery: Unremarkable. Intracranial segment is patent with no significant stenosis. No aneurysm. Right middle cerebral artery: Unremarkable. No occlusion or significant stenosis. No aneurysm. Right anterior cerebral artery: Unremarkable. No occlusion or significant stenosis. No aneurysm. Left internal carotid artery: Unremarkable. Intracranial segment is patent with no significant stenosis. No aneurysm. Left middle cerebral artery: Unremarkable. No occlusion or significant stenosis. No aneurysm. Left anterior cerebral artery: Unremarkable. No occlusion or significant stenosis. No aneurysm. POSTERIOR CIRCULATION: Right vertebral artery: Unremarkable. No occlusion or significant stenosis. No aneurysm. Left vertebral artery: The left vertebral artery terminates in a PICA. Basilar artery: Unremarkable. No occlusion or significant stenosis. No aneurysm. Right posterior cerebral artery: Unremarkable. No occlusion or significant stenosis. No aneurysm. Left posterior cerebral artery: Unremarkable. No occlusion or significant stenosis. No aneurysm. Brain: No definite mass, mass effect, or midline shift. Cerebral ventricles: No ventriculomegaly. Bones/joints: Unremarkable. No acute fracture. Soft tissues: Unremarkable. IMPRESSION: No large vessel stenosis or occlusion. Electronically signed by: Gunnar Prado On 05/21/2021 15:35:11 PM
[2021-05-21] MEDS ORDERED: ASPI81TA26 PO (15:56)
[2021-05-21 16:14] VITALS: BP 154/93
--- NOTE | 2021-05-22 13:25 | ECGEPIP ---
[facility] - ED Test Date: 2021-05-21 Pat Name: CINTIA IZQUIERDO Department: Room: - Gender: Male [employer]: beatris : 1965 Requested By: Aby Garza Order Number: [id number] Reading MD: Aby Garza Measurements Intervals Drifting Rate: 69 P: 62 HI: 180 QRS: -15 QRSD: 134 T: 22 QT: 448 QTc: 480 Interpretive Statements Normal sinus rhythm Right bundle branch block prolonged qtc No prior Electronically Signed on 05-22-2021 13:25:15 EDT by Aby Garza
== END 2021-05-21 16:21 | disposition home or self-care (01) ==
LOC: M ED 06:08
DX: R42 Dizziness and giddiness (principal); R94.31 Abnormal electrocardiogram [ECG] [EKG]; I10 Essential (primary) hypertension; K21.9 Gastro-esophageal reflux disease without esophagitis; Z79.82 Long term (current) use of aspirin; Z79.899 Other long term (current) drug therapy
CPT/HCPCS: 36415; 70450; 70496; 70498; 70544; 70551; 80047; 80053; 82550; 82553; 85025; 93005; 93041; 94760; 99285; Q9967

== ENCOUNTER → 2021-06-28 | Outpatient (CLI) | payer BC ==
[~2021-06-28] MED LIST: ASPI81TA26 PO; HYDR-3490; LOPI600T; LOSA50TA28; OMEP40CA5
[2021-06-28 16:49] LABS: ALBUMIN 3.8 GM/DL (3.2-5.2); ALT/SGPT 69 U/L (12-78); BILIRUBIN,TOTAL 0.6 MG/DL (0.2-1.0); BLOOD UREA NITROGEN 22 MG/DL (7-18); CALCIUM LEVEL 9.5 MG/DL (8.5-10.1); CARBON DIOXIDE LEVEL 30 MEQ/L (21-32); CHLORIDE LEVEL 106 MEQ/L (98-107); CHOLESTEROL LEVEL 215 MG/DL (<200); CHOLESTEROL RISK RATIO 5.657 (<5); CREATININE FOR GFR 1.09 MG/DL (0.70-1.30); GLOMERULAR FILTRATION RATE > 60.0 (>56); GLUCOSE, FASTING 103 MG/DL (70-100); HDL CHOLESTEROL 38 MG/DL (>40); LDL CHOLESTEROL 143 MG/DL (<100); NON-HDL-C 177 MG/DL; POTASSIUM SERUM 3.8 MEQ/L (3.5-5.1); SODIUM LEVEL 140 MEQ/L (136-145); TOTAL PROTEIN 7.8 GM/DL (6.4-8.2); TRIGLYCERIDES LEVEL 169 MG/DL (<150)
[2021-06-28 16:55] LABS: HEMOGLOBIN A1c 5.9 %
== END ==
LOC: M WUC 12:49
PROVIDERS: ATTEND Nurse Practitioner Family
DX: I10 Essential (primary) hypertension (principal); R73.01 Impaired fasting glucose; E78.2 Mixed hyperlipidemia

== ENCOUNTER → 2022-06-25 | Outpatient (REF) | payer BC ==
[2022-06-25 18:41] LABS: ALBUMIN 3.7 G/DL (3.2-5.2); ALT/SGPT 73 U/L (7.0-40); BILIRUBIN,TOTAL 0.6 MG/DL (0.3-1.2); BLOOD UREA NITROGEN 21 MG/DL (9-23); CALCIUM LEVEL 9.1 MG/DL (8.5-10.1); CARBON DIOXIDE LEVEL 29 MMOL/L (20-31); CHLORIDE LEVEL 104 MMOL/L (98-107); CHOLESTEROL LEVEL 188 MG/DL (<200); CHOLESTEROL RISK RATIO 4.64 (<5); CREATININE FOR GFR 0.99 MG/DL (0.70-1.30); GLOMERULAR FILTRATION RATE > 60.0 (>56); GLUCOSE, FASTING 107 MG/DL (60-100); HDL CHOLESTEROL 40.5 MG/DL (>40); LDL CHOLESTEROL 130.5 MG/DL (<100); NON-HDL-C 148 MG/DL; POTASSIUM SERUM 3.5 MMOL/L (3.5-5.1); SODIUM LEVEL 143 MMOL/L (136-145); TRIGLYCERIDES LEVEL 85 MG/DL (<150)
== END ==
LOC: M WUC 13:28
PROVIDERS: ATTEND Nurse Practitioner Family
DX: I10 Essential (primary) hypertension (principal); R73.03 Prediabetes; E78.2 Mixed hyperlipidemia

== ENCOUNTER → 2022-06-30 | Outpatient (REF) | payer BC ==
[2022-06-30 18:28] LABS: CREATININE, URINE 123.6 MG/DL
== END ==
LOC: M LAB REF 16:55
PROVIDERS: ATTEND Registered Nurse
DX: Z00.00 Encounter for general adult medical examination without abnormal findings (principal); R73.03 Prediabetes

== ENCOUNTER → 2023-02-06 | Outpatient (REF) | payer BC ==
[2023-02-06 19:11] LABS: HEMOGLOBIN A1c 6.4 % (4.0-6.0)
== END ==
LOC: M LABWUC 16:32
PROVIDERS: ATTEND Nurse Practitioner Family
DX: R73.03 Prediabetes (principal)

== ENCOUNTER → 2023-11-06 | Outpatient (REF) | payer OTHER, MEDICAID ==
[2023-11-06 19:55] LABS: ALBUMIN 3.7 G/DL (3.2-5.2); ALKALINE PHOSPHATASE 122 U/L (46-116); ALT/SGPT 60 U/L (7.0-40); AST/SGOT 29 U/L (<34); BILIRUBIN,TOTAL 0.5 MG/DL (0.3-1.2); BLOOD UREA NITROGEN 14 MG/DL (9-23); CALCIUM LEVEL 8.9 MG/DL (8.5-10.1); CARBON DIOXIDE LEVEL 34 MMOL/L (20-31); CHLORIDE LEVEL 104 MMOL/L (98-107); CHOLESTEROL LEVEL 184 MG/DL (<200); CREATININE FOR GFR 0.86 MG/DL (0.70-1.30); GLOMERULAR FILTRATION RATE > 60.0 (>56); GLUCOSE, FASTING 147 MG/DL (60-100); HDL CHOLESTEROL 36.8 MG/DL (>40); LDL CHOLESTEROL 104.4 MG/DL (<100); NON-HDL-C 147.2 MG/DL; POTASSIUM SERUM 2.9 MMOL/L (3.5-5.1); SODIUM LEVEL 142 MMOL/L (136-145); TRIGLYCERIDES LEVEL 214 MG/DL (<150)
[2023-11-06 20:25] LABS: HEMOGLOBIN A1c 6.3 % (4.0-6.0)
== END ==
LOC: M LABWUC 18:30
PROVIDERS: ATTEND Nurse Practitioner Family
DX: I10 Essential (primary) hypertension (principal); R73.03 Prediabetes

== ENCOUNTER → 2024-10-31 | Outpatient (CLI) | payer OTHER ==
[2024-10-31 13:21] LABS: HEMOGLOBIN A1c 6.8 % (4.0-6.0)
[2024-10-31 13:24] LABS: ALBUMIN 3.7 G/DL (3.2-5.2); ALKALINE PHOSPHATASE 127 U/L (40-129); ALT/SGPT 63 U/L (7.0-40); AST/SGOT 30 U/L (<34); BILIRUBIN,TOTAL 0.6 MG/DL (0.3-1.2); BLOOD UREA NITROGEN 18 MG/DL (9-23); CALCIUM LEVEL 9.9 MG/DL (8.5-10.1); CARBON DIOXIDE LEVEL 33 MMOL/L (20-31); CHLORIDE LEVEL 99 MMOL/L (98-107); CHOLESTEROL LEVEL 201 MG/DL (<200); CREATININE FOR GFR 0.95 MG/DL (0.70-1.30); GLOMERULAR FILTRATION RATE > 60.0 (>56); GLUCOSE, FASTING 152 MG/DL (60-100); HDL CHOLESTEROL 36.5 MG/DL (>40); LDL CHOLESTEROL 125.1 MG/DL (<100); NON-HDL-C 164.5 MG/DL; POTASSIUM SERUM 3.8 MMOL/L (3.5-5.1); SODIUM LEVEL 140 MMOL/L (136-145); TOTAL PROTEIN 7.5 G/DL (5.7-8.2); TRIGLYCERIDES LEVEL 197 MG/DL (<150)
== END ==
LOC: M WUC 10:49
PROVIDERS: ATTEND Nurse Practitioner Family
DX: I10 Essential (primary) hypertension (principal); E78.2 Mixed hyperlipidemia; R73.03 Prediabetes

== ENCOUNTER → 2025-07-05 | Outpatient (CLI) | payer OTHER ==
[2025-07-05 14:58] LABS: ESTIMATED AVERAGE GLUCOSE 163.0 MG/DL (60-110)
== END ==
LOC: M WUC 10:39
PROVIDERS: ATTEND Nurse Practitioner Family
DX: E11.9 Type 2 diabetes mellitus without complications (principal)